=== PATIENT | male | born 1985 | race Caucasian/White ===

== ENCOUNTER 2019-12-15 12:20 | Inpatient (IN) | payer MEDICAID ==
[~2019-12-15] VITALS: Ht 177.8 cm; Wt 90.5 kg
[~2019-12-15 12:20] MED LIST: BENZ0.5T32 PO; FLUP10 PO; LAMO100 PO
[2019-12-15 17:46] VITALS: BP 114/76
[2019-12-15] MEDS: LORazepam 2 MG TABLET PO PRN (18:16)
[2019-12-15] MEDS: HALOPERIDOL 5 MG TABLET PO PRN (18:16)
[2019-12-16 01:21] VITALS: BP 133/72
[2019-12-16] MEDS: LORazepam 2 MG TABLET PO PRN ×2 (02:34→16:33)
[2019-12-16 08:19] VITALS: BP 114/62
[2019-12-16] MEDS ORDERED: ACETAMINOPHEN 325 MG TABLET PO PRN (11:30)
[2019-12-16] MEDS ORDERED: ONDANSETRON HCL 4 MG TABLET PO PRN (11:30)
[2019-12-16] MEDS ORDERED: CloNIDine HCL 0.1 MG TABLET PO PRN (11:30)
[2019-12-16] MEDS ORDERED: MAG HYDROX/AL HYDROX/SIMETH ES 30 ML SUSPENSION UDCUP PO PRN (11:30)
[2019-12-16] MEDS ORDERED: DOCUSATE SODIUM 100 MG CAPSULE PO PRN (11:30)
[2019-12-16] MEDS ORDERED: NICOTINE 14 MG/24 HOUR PATCH TD PRN (11:30)
[2019-12-16] MEDS ORDERED: MAGNESIUM HYDROXIDE SUSPENSION 30 ML UDCUP PO PRN (11:30)
[2019-12-16] MEDS ORDERED: PETROLATUM,WHITE 28 GM JELLY TP PRN (11:30)
[2019-12-16] MEDS ORDERED: IBUPROFEN 400 MG TABLET PO PRN (11:30)
[2019-12-16] MEDS ORDERED: GuaiFENesin/D-METHORPHAN [SUGAR-FREE] 200-20MG/10 ML SYRUP UDCUP PO PRN (11:30)
[2019-12-16] MEDS ORDERED: LOPERAMIDE HCL 2 MG CAPSULE PO PRN (11:30)
[2019-12-16] MEDS ORDERED: ALBUTEROL SULFATE HFA 90 MCG/PUFF 8 GM INHALER IH PRN (11:30)
[2019-12-16] MEDS: HALOPERIDOL 5 MG TABLET PO PRN (16:33)
[2019-12-16] MEDS: GABAPENTIN 300 MG CAPSULE PO SCH (16:33)
[2019-12-16] MEDS: OLANZapine 5 MG TABLET PO SCH (16:33)
[2019-12-17 05:33] VITALS: BP 121/92
[2019-12-17 08:36] VITALS: BP 119/91
[2019-12-17] MEDS: OLANZapine 5 MG TABLET PO SCH ×2 (08:37→16:04)
[2019-12-17] MEDS: GABAPENTIN 300 MG CAPSULE PO SCH ×2 (08:37→16:04)
[2019-12-17 10:04] LABS: APPEARANCE,URINE CLEAR (CLEAR); BILIRUBIN,URINE NEGATIVE (NEGATIVE); GLUCOSE, URINE (UA) NEGATIVE (NEGATIVE); KETONES,URINE NEGATIVE (NEGATIVE); LEUKOCYTE ESTERASE ,URINE NEGATIVE (NEGATIVE); NITRATE,URINE NEGATIVE (NEGATIVE); OCCULT BLOOD,URINE NEGATIVE (NEGATIVE); PH,URINE 7.5 (5.0-8.0); PROTEIN,URINE NEGATIVE (NEGATIVE); UROBILINOGEN,URINE 0.2 mg/dL (<=1.0)
[2019-12-17 12:29] LABS: AMPHET/METH SCREEN,URINE NEGATIVE (NEGATIVE); BARBITURATE SCREEN, URINE NEGATIVE (NEGATIVE); BENZODIAZEPINES SCREEN,URINE NEGATIVE (NEGATIVE); CANNABINOID SCREEN,URINE NEGATIVE (NEGATIVE); COCAINE SCREEN,URINE NEGATIVE (NEGATIVE); METHADONE SCREEN, URINE NEGATIVE (NEGATIVE); OPIATE SCREEN,URINE NEGATIVE (NEGATIVE)
[2019-12-17 12:30] LABS: PHENCYCLIDINE SCREEN,URINE NEGATIVE (NEGATIVE)
[2019-12-17] MEDS: HALOPERIDOL 5 MG TABLET PO PRN (16:04)
[2019-12-17] MEDS: LORazepam 2 MG TABLET PO PRN (16:04)
[2019-12-17 16:11] VITALS: BP 114/89
[2019-12-17] MEDS ORDERED: LORazepam 2 MG/ML VIAL ONE (18:44)
[2019-12-17] MEDS ORDERED: DiphenhydrAMINE HCL 50 MG/ML VIAL ONE (18:44)
[2019-12-17] MEDS ORDERED: HALOPERIDOL LACTATE 5 MG/ML VIAL ONE (18:44)
[2019-12-17] MEDS ORDERED: HALOPERIDOL LACTATE 5 MG/ML VIAL IM ONE (18:45)
[2019-12-17] MEDS ORDERED: DiphenhydrAMINE HCL 50 MG/ML VIAL IM ONE (18:45)
[2019-12-17] MEDS ORDERED: LORazepam 2 MG/ML VIAL IM ONE (18:45)
[2019-12-18 05:57] VITALS: BP 115/72
[2019-12-18] MEDS: NICOTINE POLACRILEX 2 MG LOZENGE PO PRN ×3 (06:52→16:07)
[2019-12-18 08:02] VITALS: BP 109/68
[2019-12-18] MEDS: OLANZapine 5 MG TABLET PO SCH ×2 (09:00→16:07)
[2019-12-18] MEDS: GABAPENTIN 300 MG CAPSULE PO SCH ×2 (09:00→16:07)
[2019-12-18] MEDS: LORazepam 2 MG TABLET PO PRN ×2 (10:13→16:07)
[2019-12-18] MEDS: HALOPERIDOL 5 MG TABLET PO PRN (16:07)
[2019-12-18 20:03] VITALS: BP 136/69
[2019-12-19 00:02] VITALS: BP 101/60
[2019-12-19] MEDS: NICOTINE POLACRILEX 2 MG LOZENGE PO PRN ×3 (06:43→20:42)
[2019-12-19] MEDS: GABAPENTIN 300 MG CAPSULE PO SCH ×2 (08:10→16:14)
[2019-12-19] MEDS: OLANZapine 5 MG TABLET PO SCH ×2 (08:10→16:14)
[2019-12-19 16:05] VITALS: BP 121/67
[2019-12-19] MEDS: LORazepam 2 MG TABLET PO PRN (16:14)
[2019-12-20] MEDS: NICOTINE POLACRILEX 2 MG LOZENGE PO PRN (05:56)
[2019-12-20 06:15] VITALS: BP 115/74
[2019-12-20 08:01] LABS: BASOPHILS % (AUTO) 0.5 % (0.0-2.0); EOSINOPHILS % (AUTO) 3.1 % (1.0-6.0); HEMATOCRIT 44.8 % (41-53); HEMOGLOBIN 14.5 g/dL (13.5-17.5); LYMPHOCYTES # (AUTO) 1.6 K/uL (1.0-4.8); LYMPHOCYTES % (AUTO) 24.3 % (22.0-44.0); MEAN CORPUSCULAR HEMOGLOBIN 29.3 pg (26.0-34.0); MEAN CORPUSCULAR HGB CONC 32.4 G/dL (31.0-37.0); MEAN CORPUSCULAR VOLUME 91 fL (80-100); MONOCYTES # (AUTO) 0.8 K/uL (0.1-1.0); MONOCYTES % (AUTO) 12.1 % (2.0-9.0); NEUTROPHILS # (AUTO) 3.9 K/uL (1.8-7.7); PLATELET COUNT (AUTO) 233 K/uL (150-450); RED BLOOD CELL COUNT(AUTO) 4.95 MIL/uL (4.50-5.90); RED CELL DISTRIBUTION WIDTH 13.5 % (11.5-14.5)
[2019-12-20 08:14] VITALS: BP 148/81
[2019-12-20] MEDS: OLANZapine 5 MG TABLET PO SCH ×2 (08:24→16:08)
[2019-12-20] MEDS: GABAPENTIN 300 MG CAPSULE PO SCH ×2 (08:24→16:08)
[2019-12-20 08:36] LABS: ALANINE AMINOTRANSFERASE 64 U/L (12-78); ALBUMIN 3.7 g/dL (3.4-5.0); ALKALINE PHOSPHATASE 58 U/L (46-116); ANION GAP 7 mmol/L (8-16); ASPARTATE AMINOTRANSFERASE 33 U/L (15-37); BILIRUBIN,TOTAL 0.4 mg/dL (0.1-1.0); CALCIUM, TOTAL 8.9 mg/dL (8.8-10.5); CARBON DIOXIDE 31 mmol/L (22-29); CHLORIDE 103 mmol/L (98-107); CHOL/HDL RATIO 5.7 (4.2-7.3); CHOLESTEROL 181 mg/dL (131-200); CREATININE 0.86 mg/dL (0.60-1.30); FREE T4 (FREE THYROXINE) 0.78 ng/dL (0.76-1.46); GLOMERULAR FILTR. RATE CALC > 60 mL/min (>60); GLUCOSE,RANDOM 103 mg/dL (70-110); HDL CHOLESTEROL 32 mg/dL (40-60); LDL CHOL (CALC.) 108 mg/dL (0-130); POTASSIUM 4.4 mmol/L (3.5-5.1); SODIUM SERUM 141 mmol/L (136-145); THYROID STIMULATING HORMONE 2.38 uIU/mL (0.36-3.74); TOTAL PROTEIN, SERUM 7.2 g/dL (6.4-8.2); TRIGLYCERIDES 207 mg/dL (15-150); UREA NITROGEN, BLOOD 13 mg/dL (7-18)
[2019-12-20 09:14] LABS: HEMOGLOBIN A1C 5.3 % (3.8-5.6)
[2019-12-20] MEDS: HALOPERIDOL 5 MG TABLET PO PRN (12:32)
[2019-12-20] MEDS: LORazepam 2 MG TABLET PO PRN ×2 (12:32→16:32)
[2019-12-20 16:52] VITALS: BP 107/72
[2019-12-21 01:39] VITALS: BP 105/75
[2019-12-21 08:02] VITALS: BP 101/67
[2019-12-21] MEDS: OLANZapine 5 MG TABLET PO SCH ×2 (09:15→17:10)
[2019-12-21] MEDS: GABAPENTIN 300 MG CAPSULE PO SCH ×2 (09:15→17:10)
[2019-12-21 16:02] VITALS: BP 127/75
[2019-12-21] MEDS: LORazepam 2 MG TABLET PO PRN (17:10)
[2019-12-21] MEDS: ZOLPIDEM TARTRATE 10 MG TABLET PO PRN (20:36)
[2019-12-22 05:49] VITALS: BP 120/70
[2019-12-22 08:02] VITALS: BP 124/67
[2019-12-22] MEDS: GABAPENTIN 300 MG CAPSULE PO SCH ×2 (08:18→16:42)
[2019-12-22] MEDS: OLANZapine 5 MG TABLET PO SCH ×2 (08:18→16:42)
[2019-12-22] MEDS: NICOTINE POLACRILEX 2 MG LOZENGE PO PRN ×2 (08:36→16:49)
[2019-12-22] MEDS: LORazepam 2 MG TABLET PO PRN (10:23)
[2019-12-22 16:01] VITALS: BP 115/73
[2019-12-23 06:35] VITALS: BP 114/61
[2019-12-23] MEDS: GABAPENTIN 300 MG CAPSULE PO SCH ×2 (07:57→16:09)
[2019-12-23] MEDS: OLANZapine 5 MG TABLET PO SCH ×2 (07:57→16:09)
[2019-12-23 08:02] VITALS: BP 106/70
[2019-12-23] MEDS: LORazepam 2 MG TABLET PO PRN ×2 (10:51→16:09)
[2019-12-24 01:15] VITALS: BP 119/70
[2019-12-24] MEDS: GABAPENTIN 300 MG CAPSULE PO SCH ×2 (07:54→16:27)
[2019-12-24] MEDS: OLANZapine 5 MG TABLET PO SCH ×2 (07:54→16:27)
[2019-12-24 08:05] VITALS: BP 120/67
[2019-12-24] MEDS: NICOTINE POLACRILEX 2 MG LOZENGE PO PRN ×2 (08:17→16:49)
[2019-12-24 16:05] VITALS: BP 136/85
[2019-12-24] MEDS: LORazepam 2 MG TABLET PO PRN (16:28)
[2019-12-24] MEDS: ZOLPIDEM TARTRATE 10 MG TABLET PO PRN (20:16)
[2019-12-25 02:00] VITALS: BP 119/78
[2019-12-25] MEDS: NICOTINE POLACRILEX 2 MG LOZENGE PO PRN ×2 (03:55→12:43)
[2019-12-25 07:45] VITALS: BP 129/67
[2019-12-25 08:04] VITALS: BP 129/67
[2019-12-25] MEDS: GABAPENTIN 300 MG CAPSULE PO SCH ×2 (08:11→16:24)
[2019-12-25] MEDS: OLANZapine 5 MG TABLET PO SCH ×2 (08:11→16:24)
[2019-12-25] MEDS: LORazepam 2 MG TABLET PO PRN ×2 (08:11→16:24)
[2019-12-25 16:03] VITALS: BP 116/64
[2019-12-26 01:43] VITALS: BP 124/62
[2019-12-26 08:22] VITALS: BP 116/72
[2019-12-26] MEDS: NICOTINE POLACRILEX 2 MG LOZENGE PO PRN (08:24)
[2019-12-26] MEDS: OLANZapine 5 MG TABLET PO SCH (08:25)
[2019-12-26] MEDS: GABAPENTIN 300 MG CAPSULE PO SCH (08:25)
[2019-12-26] MEDS ORDERED: GABA-1181 PO (13:25)
[2019-12-26] MEDS ORDERED: OLAN5TAB2 PO (13:25)
== END 2019-12-26 11:53 | disposition home or self-care (01) | DRG 750 ==
LOC: B3A 17:23
PROVIDERS: ADMIT Psychiatry & Neurology Psychiatry; ATTEND Psychiatry & Neurology Psychiatry
DX: F20.0 Paranoid schizophrenia (principal); Z59.0 Homelessness; F10.10 Alcohol abuse, uncomplicated; F17.210 Nicotine dependence, cigarettes, uncomplicated; F12.90 Cannabis use, unspecified, uncomplicated; K21.9 Gastro-esophageal reflux disease without esophagitis; F19.10 Other psychoactive substance abuse, uncomplicated; Z91.14 Patient's other noncompliance with medication regimen
CPT/HCPCS: 80307; 83036; 84439; 84443; J1200; J1630; J2060

== ENCOUNTER 2019-12-27 12:31 | Emergency (ER) | payer MEDICAID ==
[~2019-12-27] VITALS: Ht 179.1 cm; Wt 90.9 kg
[~2019-12-27 12:31] MED LIST changes: -BENZ0.5T32 PO; -FLUP10 PO; +GABA-1181 PO; -LAMO100 PO; +OLAN5TAB2 PO
[2019-12-27 12:37] VITALS: BP 149/94
[2019-12-27] MEDS ORDERED: OLANZapine 5 MG TABLET PO ONE (15:00)
[2019-12-27] MEDS ORDERED: GABAPENTIN 100 MG CAPSULE PO ONE (15:00)
== END 2019-12-27 15:49 | disposition home or self-care (01) ==
LOC: EMS 12:32
DX: F20.9 Schizophrenia, unspecified (principal); F17.210 Nicotine dependence, cigarettes, uncomplicated; F12.90 Cannabis use, unspecified, uncomplicated
CPT/HCPCS: 99406

== ENCOUNTER 2020-01-01 07:58 | Inpatient (IN) | payer MEDICAID ==
[~2020-01-01] VITALS: Ht 170.2 cm; Wt 88.1 kg
[2020-01-01] MEDS ORDERED: HALOPERIDOL LACTATE 5 MG/ML VIAL IM ONE (09:30)
[2020-01-01] MEDS ORDERED: LORazepam 2 MG/ML VIAL IM ONE (09:30)
[2020-01-01] MEDS ORDERED: HALOPERIDOL 5 MG TABLET PO ONE (09:30)
[2020-01-01] MEDS ORDERED: LORazepam 2 MG TABLET PO ONE (09:30)
[2020-01-01 13:46] VITALS: BP 115/69
[2020-01-01] MEDS: HALOPERIDOL 5 MG TABLET PO PRN (14:26)
[2020-01-01] MEDS: LORazepam 2 MG TABLET PO PRN (14:26)
[2020-01-01 16:27] VITALS: BP 123/89
[2020-01-01] MEDS: OLANZapine 5 MG TABLET PO SCH (17:07)
[2020-01-01] MEDS: GABAPENTIN 300 MG CAPSULE PO SCH (17:08)
[2020-01-02 04:58] VITALS: BP 116/74
[2020-01-02 08:36] VITALS: BP 111/68
[2020-01-02] MEDS: OLANZapine 5 MG TABLET PO SCH ×2 (08:37→16:29)
[2020-01-02] MEDS: GABAPENTIN 300 MG CAPSULE PO SCH ×2 (08:37→16:29)
[2020-01-02] MEDS: LORazepam 2 MG TABLET PO PRN (12:36)
[2020-01-02] MEDS: HALOPERIDOL 5 MG TABLET PO PRN (12:36)
[2020-01-02] MEDS ORDERED: DOCUSATE SODIUM 100 MG CAPSULE PO PRN (13:15)
[2020-01-02] MEDS ORDERED: ALBUTEROL SULFATE HFA 90 MCG/PUFF 8 GM INHALER IH PRN (13:15)
[2020-01-02] MEDS ORDERED: ACETAMINOPHEN 325 MG TABLET PO PRN (13:15)
[2020-01-02] MEDS ORDERED: CloNIDine HCL 0.1 MG TABLET PO PRN (13:15)
[2020-01-02] MEDS ORDERED: ONDANSETRON HCL 4 MG TABLET PO PRN (13:15)
[2020-01-02] MEDS ORDERED: LOPERAMIDE HCL 2 MG CAPSULE PO PRN (13:15)
[2020-01-02] MEDS ORDERED: MAG HYDROX/AL HYDROX/SIMETH ES 30 ML SUSPENSION UDCUP PO PRN (13:15)
[2020-01-02] MEDS ORDERED: GuaiFENesin/D-METHORPHAN [SUGAR-FREE] 200-20MG/10 ML SYRUP UDCUP PO PRN (13:15)
[2020-01-02] MEDS ORDERED: PETROLATUM,WHITE 28 GM JELLY TP PRN (13:15)
[2020-01-02] MEDS ORDERED: MAGNESIUM HYDROXIDE SUSPENSION 30 ML UDCUP PO PRN (13:15)
[2020-01-02] MEDS ORDERED: IBUPROFEN 400 MG TABLET PO PRN (13:15)
[2020-01-02] MEDS ORDERED: DiphenhydrAMINE HCL 50 MG/ML VIAL ONE (15:14)
[2020-01-02] MEDS ORDERED: HALOPERIDOL LACTATE 5 MG/ML VIAL ONE (15:14)
[2020-01-02] MEDS ORDERED: DiphenhydrAMINE HCL 50 MG/ML VIAL IM ONE (15:15)
[2020-01-02] MEDS ORDERED: HALOPERIDOL LACTATE 5 MG/ML VIAL IM ONE (15:15)
[2020-01-02] MEDS ORDERED: LORazepam 2 MG/ML VIAL IM ONE (15:15)
[2020-01-02 16:08] VITALS: BP 100/75
[2020-01-03 06:00] VITALS: BP 128/80
[2020-01-03 08:24] VITALS: BP 115/67
[2020-01-03] MEDS: OLANZapine 5 MG TABLET PO SCH (08:43)
[2020-01-03] MEDS: GABAPENTIN 300 MG CAPSULE PO SCH ×2 (08:44→17:20)
[2020-01-03] MEDS: LORazepam 2 MG TABLET PO PRN (08:44)
[2020-01-03] MEDS ORDERED: HALOPERIDOL LACTATE 5 MG/ML VIAL IM ONE (15:45)
[2020-01-03] MEDS ORDERED: DiphenhydrAMINE HCL 50 MG/ML VIAL IM ONE (15:45)
[2020-01-03] MEDS ORDERED: LORazepam 2 MG/ML VIAL IM ONE (15:45)
[2020-01-03 16:47] VITALS: BP 129/69
[2020-01-03] MEDS: OLANZapine 10 MG TABLET PO SCH (17:20)
[2020-01-04 00:52] VITALS: BP 125/79
[2020-01-04 08:08] LABS: BASOPHILS % (AUTO) 0.5 % (0.0-2.0); EOSINOPHILS % (AUTO) 2.4 % (1.0-6.0); HEMATOCRIT 42.3 % (41-53); HEMOGLOBIN 14.2 g/dL (13.5-17.5); LYMPHOCYTES # (AUTO) 1.2 K/uL (1.0-4.8); LYMPHOCYTES % (AUTO) 20.2 % (22.0-44.0); MEAN CORPUSCULAR HEMOGLOBIN 30.3 pg (26.0-34.0); MEAN CORPUSCULAR HGB CONC 33.5 G/dL (31.0-37.0); MEAN CORPUSCULAR VOLUME 90 fL (80-100); MONOCYTES # (AUTO) 0.6 K/uL (0.1-1.0); MONOCYTES % (AUTO) 10.1 % (2.0-9.0); NEUTROPHILS % (AUTO) 66.8 % (40.0-70.0); PLATELET COUNT (AUTO) 233 K/uL (150-450); RED BLOOD CELL COUNT(AUTO) 4.68 MIL/uL (4.50-5.90); RED CELL DISTRIBUTION WIDTH 13.8 % (11.5-14.5)
[2020-01-04 08:31] LABS: ALANINE AMINOTRANSFERASE 32 U/L (12-78); ALBUMIN 3.7 g/dL (3.4-5.0); ALKALINE PHOSPHATASE 60 U/L (46-116); ANION GAP 6 mmol/L (8-16); ASPARTATE AMINOTRANSFERASE 28 U/L (15-37); BILIRUBIN,TOTAL 0.4 mg/dL (0.1-1.0); CALCIUM, TOTAL 8.7 mg/dL (8.8-10.5); CARBON DIOXIDE 28 mmol/L (22-29); CHLORIDE 105 mmol/L (98-107); CHOL/HDL RATIO 4.5 (4.2-7.3); CHOLESTEROL 134 mg/dL (131-200); GLOMERULAR FILTR. RATE CALC > 60 mL/min (>60); GLUCOSE,RANDOM 96 mg/dL (70-110); HDL CHOLESTEROL 30 mg/dL (40-60); LDL CHOL (CALC.) 72 mg/dL (0-130); POTASSIUM 3.9 mmol/L (3.5-5.1); SODIUM SERUM 139 mmol/L (136-145); THYROID STIMULATING HORMONE 1.45 uIU/mL (0.36-3.74); TOTAL PROTEIN, SERUM 7.2 g/dL (6.4-8.2); TRIGLYCERIDES 162 mg/dL (15-150); UREA NITROGEN, BLOOD 9 mg/dL (7-18)
[2020-01-04 09:01] LABS: HEMOGLOBIN A1C 5.2 % (3.8-5.6)
[2020-01-04 09:27] VITALS: BP 104/61
[2020-01-04] MEDS: LORazepam 2 MG TABLET PO PRN (09:29)
[2020-01-04] MEDS: GABAPENTIN 300 MG CAPSULE PO SCH ×2 (09:29→16:31)
[2020-01-04] MEDS: OLANZapine 10 MG TABLET PO SCH ×2 (09:29→16:31)
[2020-01-04] MEDS: HALOPERIDOL 5 MG TABLET PO PRN (09:29)
[2020-01-04 16:33] VITALS: BP 139/71
[2020-01-05 02:50] VITALS: BP 121/68
[2020-01-05] MEDS: GABAPENTIN 300 MG CAPSULE PO SCH ×2 (09:07→16:01)
[2020-01-05] MEDS: OLANZapine 10 MG TABLET PO SCH ×2 (09:07→16:01)
[2020-01-05 09:15] VITALS: BP 127/66
[2020-01-05] MEDS: LORazepam 2 MG TABLET PO PRN ×2 (12:43→16:51)
[2020-01-05 16:17] VITALS: BP 120/67
[2020-01-06 05:39] VITALS: BP 125/71
[2020-01-06 08:23] VITALS: BP 133/66
[2020-01-06] MEDS: GABAPENTIN 300 MG CAPSULE PO SCH ×2 (08:46→16:03)
[2020-01-06] MEDS: OLANZapine 10 MG TABLET PO SCH ×2 (08:47→16:03)
[2020-01-06] MEDS: LORazepam 2 MG TABLET PO PRN (16:03)
[2020-01-06] MEDS: HALOPERIDOL 5 MG TABLET PO PRN (16:03)
[2020-01-06 16:16] VITALS: BP 116/60
[2020-01-07 00:47] VITALS: BP 122/84
[2020-01-07] MEDS: GABAPENTIN 300 MG CAPSULE PO SCH ×2 (08:00→16:02)
[2020-01-07] MEDS: OMEGA-3/DHA/EPA/FISH OIL 500 MG CAPSULE PO SCH (08:02)
[2020-01-07 08:15] VITALS: BP 126/71
[2020-01-07] MEDS: OLANZapine 10 MG TABLET PO SCH ×2 (09:00→16:01)
[2020-01-07] MEDS: LORazepam 2 MG TABLET PO PRN ×2 (14:04→18:07)
[2020-01-07] MEDS: HALOPERIDOL 5 MG TABLET PO PRN (14:04)
[2020-01-07 16:22] VITALS: BP 117/70
[2020-01-08 05:54] VITALS: BP 116/74
[2020-01-08] MEDS: GABAPENTIN 300 MG CAPSULE PO SCH ×2 (08:00→16:08)
[2020-01-08] MEDS: OLANZapine 10 MG TABLET PO SCH ×2 (08:00→16:08)
[2020-01-08] MEDS: OMEGA-3/DHA/EPA/FISH OIL 500 MG CAPSULE PO SCH (08:00)
[2020-01-08 08:20] VITALS: BP 108/66
[2020-01-08] MEDS: NICOTINE 14 MG/24 HOUR PATCH TD PRN (14:32)
[2020-01-08] MEDS: LORazepam 2 MG TABLET PO PRN ×2 (14:32→18:44)
[2020-01-08] MEDS: HALOPERIDOL 5 MG TABLET PO PRN (14:32)
[2020-01-08 16:19] VITALS: BP 126/73
[2020-01-08] MEDS: ZOLPIDEM TARTRATE 10 MG TABLET PO PRN (20:06)
[2020-01-09 06:17] VITALS: BP 127/71
[2020-01-09 08:39] VITALS: BP 134/77
[2020-01-09] MEDS: GABAPENTIN 300 MG CAPSULE PO SCH ×2 (09:38→16:11)
[2020-01-09] MEDS: OMEGA-3/DHA/EPA/FISH OIL 500 MG CAPSULE PO SCH (09:38)
[2020-01-09] MEDS: OLANZapine 10 MG TABLET PO SCH ×2 (09:38→16:11)
[2020-01-09] MEDS: NICOTINE 14 MG/24 HOUR PATCH TD PRN (14:09)
[2020-01-09] MEDS: LORazepam 2 MG TABLET PO PRN (16:11)
[2020-01-09 16:20] VITALS: BP 137/70
[2020-01-10 04:10] VITALS: BP 123/67
[2020-01-10] MEDS: OLANZapine 10 MG TABLET PO SCH ×2 (09:01→16:14)
[2020-01-10] MEDS: GABAPENTIN 300 MG CAPSULE PO SCH ×2 (09:01→16:14)
[2020-01-10] MEDS: OMEGA-3/DHA/EPA/FISH OIL 500 MG CAPSULE PO SCH (09:01)
[2020-01-10 09:02] VITALS: BP 111/64
[2020-01-10] MEDS: HALOPERIDOL 5 MG TABLET PO PRN (16:14)
[2020-01-10 17:00] VITALS: BP 137/78
[2020-01-10] MEDS: ZOLPIDEM TARTRATE 10 MG TABLET PO PRN (20:34)
[2020-01-11 02:04] VITALS: BP 127/79
[2020-01-11 02:47] VITALS: BP 125/77
[2020-01-11] MEDS: GABAPENTIN 300 MG CAPSULE PO SCH ×2 (08:48→16:10)
[2020-01-11] MEDS: OMEGA-3/DHA/EPA/FISH OIL 500 MG CAPSULE PO SCH (08:48)
[2020-01-11] MEDS: OLANZapine 10 MG TABLET PO SCH ×2 (08:48→16:10)
[2020-01-11 09:32] VITALS: BP 120/67
[2020-01-11 16:45] VITALS: BP 131/78
[2020-01-12 00:41] VITALS: BP 126/77
[2020-01-12 05:38] VITALS: BP 105/50
[2020-01-12 08:11] VITALS: BP 109/64
[2020-01-12] MEDS: GABAPENTIN 300 MG CAPSULE PO SCH (08:16)
[2020-01-12] MEDS: OMEGA-3/DHA/EPA/FISH OIL 500 MG CAPSULE PO SCH (08:16)
[2020-01-12] MEDS: OLANZapine 10 MG TABLET PO SCH (08:16)
[2020-01-12] MEDS ORDERED: OLAN10TA3 PO (13:01)
== END 2020-01-12 15:23 | disposition home or self-care (01) | DRG 750 ==
LOC: EMS 07:59 → B2S 11:40 → UNDOADMIN 12:47 → B2S 12:47 → B3A 14:01 → B2S 14:01
PROVIDERS: ADMIT Psychiatry & Neurology Psychiatry; ATTEND Psychiatry & Neurology Psychiatry
DX: F20.9 Schizophrenia, unspecified (principal); F10.10 Alcohol abuse, uncomplicated; F17.210 Nicotine dependence, cigarettes, uncomplicated; F31.9 Bipolar disorder, unspecified; K21.9 Gastro-esophageal reflux disease without esophagitis; Z53.20 Procedure and treatment not carried out because of patient's decision for unspecified reasons; F12.10 Cannabis abuse, uncomplicated; Z71.51 Drug abuse counseling and surveillance of drug abuser
CPT/HCPCS: 83036; 84443; 99291; J1200; J1630; J2060

== ENCOUNTER 2024-08-11 02:33 | Inpatient (IN) | payer MEDICAID ==
[~2024-08-11] VITALS: Ht 177.8 cm; Wt 82.1 kg
[~2024-08-11 02:33] MED LIST changes: +OLAN10TA74 PO; -OLAN5TAB2 PO
[2024-08-11] MEDS: LORazepam 2 MG/ML VIAL IM ONE ×2 (05:48→15:20)
[2024-08-11] MEDS: HALOPERIDOL LACTATE 5 MG/ML VIAL IM ONE ×2 (05:48→15:20)
[2024-08-11] MEDS: DiphenhydrAMINE HCL 50 MG/ML VIAL IM ONE ×2 (05:49→15:20)
[2024-08-11 06:56] LABS: COVID AG,FIA SOURCE NASAL SWAB
[2024-08-11 07:38] LABS: SARS-COV2 (COVID) ANTIGEN,FIA Negative (Negative)
[2024-08-11 08:02] LABS: BASOPHILS % (AUTO) 0.3 % (0.0-2.0); HEMATOCRIT 37.6 % (41-53); LYMPHOCYTES # (AUTO) 1.2 K/uL (1.0-4.8); MEAN CORPUSCULAR HGB CONC 34.4 G/dL (31.0-37.0); MEAN CORPUSCULAR VOLUME 90 fL (80-100); MONOCYTES # (AUTO) 1.1 K/uL (0.1-1.0); MONOCYTES % (AUTO) 14.1 % (2.0-9.0); NEUTROPHILS % (AUTO) 66.6 % (40.0-70.0); PLATELET COUNT (AUTO) 266 K/uL (150-450); RED BLOOD CELL COUNT(AUTO) 4.18 MIL/uL (4.50-5.90); RED CELL DISTRIBUTION WIDTH 13.3 % (11.5-14.5); WHITE BLOOD COUNT (AUTO) 7.5 K/uL (4.5-11.0)
[2024-08-11 08:16] LABS: ANION GAP 8 mmol/L (8-16); CALCIUM, TOTAL 8.3 mg/dL (8.8-10.5); CARBON DIOXIDE 29 mmol/L (22-29); CHLORIDE 100 mmol/L (98-107); CREATININE 0.74 mg/dL (0.60-1.30); GLOMERULAR FILTR. RATE CALC > 60 mL/min (>60); GLUCOSE,RANDOM 97 mg/dL (70-110); POTASSIUM 3.4 mmol/L (3.5-5.1); SODIUM SERUM 137 mmol/L (136-145); UREA NITROGEN, BLOOD 16 mg/dL (7-18)
[2024-08-11 08:21] LABS: ALCOHOL, BLOOD (SERUM) < 3 mg/dL (0-10)
[2024-08-11] MEDS: POTASSIUM CHLORIDE 20 MEQ ER TABLET PO ONE (10:53)
[2024-08-11] MEDS ORDERED: LOPERAMIDE HCL 2 MG CAPSULE PO PRN ×2 (11:30→15:15)
[2024-08-11] MEDS ORDERED: MAGNESIUM HYDROXIDE SUSPENSION 30 ML UDCUP PO PRN ×2 (11:30→15:15)
[2024-08-11] MEDS ORDERED: ACETAMINOPHEN 325 MG TABLET PO PRN ×2 (11:30→15:15)
[2024-08-11] MEDS ORDERED: MAG HYDROX/ALUMINUM HYD/SIMETH ES 30 ML SUSPENSION UDCUP PO PRN ×2 (11:30→15:15)
[2024-08-11] MEDS: LORazepam 2 MG TABLET PO PRN (12:16)
[2024-08-11] MEDS: CEPHALEXIN MONOHYDRATE 500 MG CAPSULE PO ONE (12:16)
[2024-08-11] MEDS: SULFAMETHOX/TRIMETH DS 800-160 MG/TABLET PO ONE (12:16)
[2024-08-11] MEDS: HALOPERIDOL 5 MG TABLET PO PRN (12:17)
[2024-08-11] MEDS ORDERED: NICOTINE 21 MG/24 HOUR PATCH TD PRN (14:30)
[2024-08-11] MEDS ORDERED: ONDANSETRON 4 MG TABLET PO PRN (15:15)
[2024-08-11] MEDS ORDERED: DOCUSATE SODIUM 100 MG CAPSULE PO PRN (15:15)
[2024-08-11] MEDS ORDERED: PETROLATUM,WHITE 28 GM JELLY TP PRN (15:15)
[2024-08-11] MEDS ORDERED: IBUPROFEN 400 MG TABLET PO PRN (15:15)
[2024-08-11] MEDS ORDERED: GuaiFENesin/D-METHORPHAN [SUGAR-FREE] 200-20MG/10 ML SYRUP UDCUP PO PRN (15:15)
[2024-08-11] MEDS ORDERED: CloNIDine HCL 0.1 MG TABLET PO PRN (15:15)
[2024-08-11] MEDS ORDERED: NICOTINE 14 MG/24 HOUR PATCH TD PRN (15:15)
[2024-08-11 16:03] VITALS: BP 116/69; PULSE 72; RESP 19; TEMP 97.5; O2SAT 100
[2024-08-11 16:20] VITALS: BP 116/69; PULSE 72; RESP 16; TEMP 97.5; O2SAT 100
[2024-08-11] MEDS ORDERED: INFLUENZA VIRUS VACCINE TVS (6MO+) 2024-25/PF 45 MCG/0.5 ML SYRINGE IM. ONE (17:15)
[2024-08-11] MEDS: AMOX TR/POT CLAV 875 MG/125 MG TABLET PO SCH (21:00)
[2024-08-11 21:45] VITALS: RESP 18
[2024-08-12] MEDS: NICOTINE POLACRILEX 2 MG LOZENGE PO PRN (08:22)
[2024-08-12 08:50] VITALS: BP 114/76; PULSE 102; RESP 18; TEMP 97.4; O2SAT 99
[2024-08-12] MEDS: OLANZapine 10 MG TABLET PO SCH (11:32)
[2024-08-12] MEDS: GABAPENTIN 300 MG CAPSULE PO SCH (11:33)
[2024-08-12] MEDS: ChlorproMAZINE HCL 50 MG/2 ML AMP IM ONE (12:47)
[2024-08-12] MEDS: DiphenhydrAMINE HCL 50 MG/ML VIAL IM ONE (12:48)
[2024-08-12] MEDS: LORazepam 2 MG/ML VIAL IM ONE (12:49)
[2024-08-13] MEDS ORDERED: ChlorproMAZINE HCL 50 MG/2 ML AMP ONE ×2 (01:00→01:01)
[2024-08-13] MEDS ORDERED: DiphenhydrAMINE HCL 50 MG/ML VIAL ONE (01:00)
[2024-08-13] MEDS ORDERED: LORazepam 2 MG/ML VIAL ONE (01:00)
[2024-08-13] MEDS: DiphenhydrAMINE HCL 50 MG/ML VIAL IM ONE ×3 (01:20→13:39)
[2024-08-13] MEDS: LORazepam 2 MG/ML VIAL IM ONE ×3 (01:20→13:42)
[2024-08-13] MEDS: ChlorproMAZINE HCL 50 MG/2 ML AMP IM ONE ×3 (01:20→13:40)
[2024-08-13 09:02] LABS: APPEARANCE,URINE CLEAR (CLEAR); BILIRUBIN,URINE NEGATIVE (NEGATIVE); COLOR,URINE LIGHT YELLOW (YELLOW); GLUCOSE, URINE (UA) NEGATIVE (NEGATIVE); KETONES,URINE NEGATIVE (NEGATIVE); LEUKOCYTE ESTERASE ,URINE NEGATIVE (NEGATIVE); NITRATE,URINE NEGATIVE (NEGATIVE); OCCULT BLOOD,URINE NEGATIVE (NEGATIVE); PH,URINE 7.5 (5.0-8.0); PH,URINE DRUG SCREEN 7.5 (5.0-8.0); PROTEIN,URINE TRACE mg/dL (NEGATIVE); SPECIFIC GRAVITIY, URINE 1.011 (1.003-1.030); UROBILINOGEN,URINE <=1.0 mg/dL (<=1.0)
[2024-08-13 09:09] LABS: AMPHET/METH SCREEN,URINE NEGATIVE (NEGATIVE); BARBITURATE SCREEN, URINE NEGATIVE (NEGATIVE); BENZODIAZEPINES SCREEN,URINE NEGATIVE (NEGATIVE); CANNABINOID SCREEN,URINE POSITIVE (NEGATIVE); COCAINE SCREEN,URINE NEGATIVE (NEGATIVE); METHADONE SCREEN, URINE NEGATIVE (NEGATIVE); OPIATE SCREEN,URINE NEGATIVE (NEGATIVE); PHENCYCLIDINE SCREEN,URINE NEGATIVE (NEGATIVE)
[2024-08-13 09:10] LABS: ALCOHOL, URINE DRUG SCREEN NEGATIVE (NEGATIVE)
[2024-08-13 09:18] VITALS: BP 133/67; RESP 17; TEMP 98.2; O2SAT 98
[2024-08-13 14:00] VITALS: BP 119/70; PULSE 87; RESP 18; O2SAT 100
[2024-08-13 23:46] VITALS: RESP 18
[2024-08-14 08:08] VITALS: RESP 18
[2024-08-14] MEDS ORDERED: LORazepam 2 MG/ML VIAL ONE (10:31)
[2024-08-14] MEDS ORDERED: HALOPERIDOL LACTATE 5 MG/ML VIAL ONE (10:32)
[2024-08-14] MEDS ORDERED: DiphenhydrAMINE HCL 50 MG/ML VIAL ONE (10:32)
[2024-08-14] MEDS: DiphenhydrAMINE HCL 50 MG/ML VIAL IM ONE (11:05)
[2024-08-14] MEDS: HALOPERIDOL LACTATE 5 MG/ML VIAL IM ONE (11:05)
[2024-08-14] MEDS: LORazepam 2 MG/ML VIAL IM ONE (11:05)
[2024-08-14 20:20] VITALS: BP 135/72; PULSE 93; RESP 18; TEMP 97.5; O2SAT 100
[2024-08-14] MEDS: ZOLPIDEM TARTRATE 10 MG TABLET PO PRN (23:50)
[2024-08-15] MEDS ORDERED: LORazepam 2 MG/ML VIAL ONE (00:13)
[2024-08-15] MEDS ORDERED: DiphenhydrAMINE HCL 50 MG/ML VIAL ONE (00:13)
[2024-08-15] MEDS: DiphenhydrAMINE HCL 50 MG/ML VIAL IM ONE ×4 (00:20→23:10)
[2024-08-15] MEDS: LORazepam 2 MG/ML VIAL IM ONE ×4 (00:21→23:09)
[2024-08-15] MEDS: HALOPERIDOL LACTATE 5 MG/ML VIAL IM ONE ×2 (00:22→10:57)
[2024-08-15 01:30] VITALS: BP 131/75; PULSE 85; RESP 18; TEMP 97.9; O2SAT 100
[2024-08-15 09:37] VITALS: RESP 17
[2024-08-15] MEDS ORDERED: ChlorproMAZINE HCL 50 MG/2 ML AMP ONE (14:27)
[2024-08-15] MEDS: ChlorproMAZINE HCL 50 MG/2 ML AMP IM ONE ×2 (15:11→23:10)
[2024-08-15 20:13] VITALS: BP 125/72; PULSE 98; RESP 19; TEMP 97.4; O2SAT 99
[2024-08-15] MEDS: OLANZapine 5 MG TABLET PO SCH (21:11)
[2024-08-16 09:19] VITALS: BP 111/61; PULSE 95; RESP 18; TEMP 97.3; O2SAT 99
[2024-08-16 20:57] VITALS: BP 148/94; PULSE 95; RESP 16; TEMP 98.7; O2SAT 98
[2024-08-17] MEDS ORDERED: ChlorproMAZINE HCL 50 MG/2 ML AMP ONE (11:41)
[2024-08-17] MEDS ORDERED: DiphenhydrAMINE HCL 50 MG/ML VIAL ONE (11:43)
[2024-08-17] MEDS ORDERED: LORazepam 2 MG/ML VIAL ONE (11:43)
[2024-08-17] MEDS: LORazepam 2 MG/ML VIAL IM ONE ×2 (11:45→14:29)
[2024-08-17] MEDS: DiphenhydrAMINE HCL 50 MG/ML VIAL IM ONE ×2 (11:45→14:30)
[2024-08-17] MEDS: ChlorproMAZINE HCL 50 MG/2 ML AMP IM ONE ×2 (11:45→14:30)
[2024-08-17 14:49] VITALS: BP 111/72; PULSE 89; RESP 17; TEMP 97.5; O2SAT 100
[2024-08-17 20:00] VITALS: RESP 16
[2024-08-18 13:59] VITALS: BP 110/68; PULSE 86; RESP 17; TEMP 98; O2SAT 99
[2024-08-18] MEDS ORDERED: LORazepam 2 MG/ML VIAL ONE (16:22)
[2024-08-18] MEDS ORDERED: ChlorproMAZINE HCL 50 MG/2 ML AMP ONE (16:23)
[2024-08-18] MEDS ORDERED: DiphenhydrAMINE HCL 50 MG/ML VIAL ONE (16:24)
[2024-08-18] MEDS: LORazepam 2 MG/ML VIAL IM ONE (16:46)
[2024-08-18] MEDS: DiphenhydrAMINE HCL 50 MG/ML VIAL IM ONE (16:46)
[2024-08-18] MEDS: ChlorproMAZINE HCL 50 MG/2 ML AMP IM ONE (16:46)
[2024-08-18 20:27] VITALS: RESP 16
[2024-08-19 09:04] VITALS: BP 116/89; PULSE 81; RESP 17; TEMP 97.3; O2SAT 96
[2024-08-19 20:29] VITALS: RESP 16
[2024-08-20 08:01] VITALS: BP 119/69; PULSE 91; RESP 18; TEMP 98.3
[2024-08-20] MEDS: DiphenhydrAMINE HCL 50 MG/ML VIAL IM ONE (14:34)
[2024-08-20] MEDS: ChlorproMAZINE HCL 50 MG/2 ML AMP IM ONE (14:34)
[2024-08-20] MEDS: LORazepam 2 MG/ML VIAL IM ONE (14:34)
[2024-08-20] MEDS: ALBUTEROL SULFATE HFA 90 MCG/PUFF 8 GM INHALER IH PRN (21:44)
[2024-08-20 22:05] VITALS: BP 108/59; PULSE 90; RESP 22; TEMP 98
[2024-08-21 08:19] VITALS: BP 137/65; PULSE 90; RESP 17; TEMP 98; O2SAT 100
[2024-08-21] MEDS ORDERED: LORazepam 2 MG/ML VIAL ONE (13:06)
[2024-08-21] MEDS ORDERED: HALOPERIDOL LACTATE 5 MG/ML VIAL ONE (13:06)
[2024-08-21 20:00] VITALS: BP 141/67; PULSE 92; RESP 16; TEMP 98; O2SAT 99
[2024-08-22] MEDS ORDERED: LORazepam 2 MG/ML VIAL ONE (03:44)
[2024-08-22] MEDS: HALOPERIDOL LACTATE 5 MG/ML VIAL IM ONE (03:56)
[2024-08-22] MEDS: DiphenhydrAMINE HCL 50 MG/ML VIAL IM ONE (03:57)
[2024-08-22] MEDS: LORazepam 2 MG/ML VIAL IM ONE (03:57)
[2024-08-22 10:32] VITALS: BP 123/78; PULSE 96; RESP 17; TEMP 97.8; O2SAT 98
[2024-08-22 21:14] VITALS: RESP 17
[2024-08-23 08:21] VITALS: BP 117/60; PULSE 97; RESP 16; TEMP 97.6; O2SAT 96
[2024-08-23 20:42] VITALS: BP 114/75; PULSE 96; RESP 17; TEMP 97.2; O2SAT 99
[2024-08-24 08:15] VITALS: BP 137/65; PULSE 82; RESP 18; TEMP 97.7; O2SAT 97
[2024-08-24 08:40] VITALS: BP 137/65; PULSE 82; RESP 18; TEMP 97.7; O2SAT 97
[2024-08-24 20:13] VITALS: BP 132/60; PULSE 84; RESP 18; TEMP 97.8; O2SAT 98
[2024-08-25 08:14] VITALS: BP 110/82; PULSE 96; RESP 15; TEMP 98.2; O2SAT 96
[2024-08-25 20:14] VITALS: BP 119/60; PULSE 80; RESP 16; TEMP 98.1; O2SAT 96
[2024-08-26 09:26] VITALS: BP 127/66; PULSE 75; RESP 18; TEMP 97.6; O2SAT 99
[2024-08-26 21:04] VITALS: BP 140/90; RESP 18; TEMP 97.8; O2SAT 99
[2024-08-27 08:43] VITALS: BP 125/72; PULSE 80; RESP 17; TEMP 97.1; O2SAT 100
[2024-08-27] MEDS ORDERED: OLAN15TA2 PO (09:52)
[2024-08-27] MEDS ORDERED: GABA-1181 PO (09:52)
== END 2024-08-27 13:23 | disposition home or self-care (01) | DRG 750 ==
LOC: EMS 02:33 → B3A 13:59
PROVIDERS: ADMIT Psychiatry & Neurology Psychiatry; ATTEND Psychiatry & Neurology Psychiatry
PROC: GZHZZZZ Group Psychotherapy (ICD-10-PCS; principal; 2024-08-12)
PROC: GZ52ZZZ Individual Psychotherapy, Cognitive (ICD-10-PCS; 2024-08-12)
DX: F20.0 Paranoid schizophrenia (principal); L03.311 Cellulitis of abdominal wall; F15.10 Other stimulant abuse, uncomplicated; Z20.822 Contact with and (suspected) exposure to COVID-19; K21.9 Gastro-esophageal reflux disease without esophagitis; F17.210 Nicotine dependence, cigarettes, uncomplicated; F31.9 Bipolar disorder, unspecified; L02.412 Cutaneous abscess of left axilla; E87.6 Hypokalemia; D64.9 Anemia, unspecified; G89.29 Other chronic pain; G47.00 Insomnia, unspecified; Z79.899 Other long term (current) drug therapy; Z59.00 Homelessness unspecified; Z78.1 Physical restraint status
CPT/HCPCS: 80048; 80307; 81003; 84132; 85025; G0480; J1200; J1630; J2060; J3230; J3535